=== PATIENT | male | born 2000 | race Hispanic/Latino ===

== ENCOUNTER 2021-04-25 18:17 | Emergency (ER) | payer OTHER, SELFPAY ==
[2021-04-25] MEDS ORDERED: Bacitracin 1 PK ONE (19:37)
[2021-04-25] MEDS ORDERED: Boostrix 0.5 ML (Tdap) VIAL ONE (19:37)
== END 2021-04-25 20:08 | disposition home or self-care (01) ==
LOC: ERS 18:17
DX: S61.012A Laceration without foreign body of left thumb without damage to nail, initial encounter (principal); W45.8XXA Other foreign body or object entering through skin, initial encounter
CPT/HCPCS: 12002; 90471; 90715

== ENCOUNTER 2022-05-30 17:29 | Emergency (ER) | payer OTHER ==
[2022-05-30] MEDS ORDERED: Bupivacaine 0.25% 10 ML VIAL ONE (18:35)
[2022-05-30] MEDS ORDERED: Bacitracin 1 PK ONE (19:13)
== END 2022-05-30 21:05 | disposition home or self-care (01) ==
LOC: ERS 17:29
DX: S61.211A Laceration without foreign body of left index finger without damage to nail, initial encounter (principal); W26.0XXA Contact with knife, initial encounter
CPT/HCPCS: 12001; S0020

== ENCOUNTER 2022-06-10 14:40 | Emergency (ER) | payer OTHER | END 2022-06-10 15:50 | disposition home or self-care (01) | LOC: ERS 14:40 | DX: S61.412D Laceration without foreign body of left hand, subsequent encounter (principal); X58.XXXD Exposure to other specified factors, subsequent encounter ==